=== PATIENT | female | born 1970 | race Caucasian/White ===

== ENCOUNTER 2017-09-25 09:46 | Emergency (ER) | payer OTHER ==
[~2017-09-25] VITALS: Ht 160 cm; Wt 70.0 kg
[2017-09-25 10:17] LABS: HEMOGLOBIN 12.7 G/DL (11.9-15.5); MCH 32.5 PG (29.0-34.0); MCHC 35.3 G/DL (30.0-36.0); MCV 92.1 FL (83-99); PLATELET COUNT 301 K/uL (156-360); RBC DIS.WIDTH-CV 12.9 % (11.8-14.6); RBC DIS.WIDTH-SD 42.9 % (39-53); RED BLOOD COUNT 3.91 M/uL (3.80-5.20)
[2017-09-25 10:33] LABS: CHLORIDE 104 mEq/L (99-109); POTASSIUM 3.8 mEq/L (3.7-5.4); SODIUM 137 mEq/L (136-147)
[2017-09-25 10:35] LABS: GLUCOSE 127 mg/dL (70-99)
[2017-09-25 10:39] LABS: CREATININE 0.8 mg/dL (0.6-1.3); GFR ESTIMATE (CALCULATED) > 59 mL/min/
[2017-09-25 10:40] LABS: UREA NITROGEN (BUN) 11 mg/dL (9-23)
[2017-09-25 11:47] LABS: APPEARANCE CLEAR ((CLEAR)); BILIRUBIN NEGATIVE; BLOOD NEGATIVE; COLOR YELLOW ((YELLOW)); GLUCOSE (STRIP) NEGATIVE; KETONES NEGATIVE; LEUKOCYTES NEGATIVE; NITRITE NEGATIVE; PROTEIN (STRIP) 30; SPECIFIC GRAVITY 1.021 (1.000-1.030); UROBILINOGEN 0.2 MG/DL (0.2-1.0)
[2017-09-25 12:04] LABS: QUANTITATIVE HCG < 4.0 MIU/ML
[2017-09-25] MEDS ORDERED: LEXAPRO5 MG PO (14:38)
[2017-09-25] MEDS ORDERED: ADDERALL XR 1010 MG PO (14:38)
[2017-09-25 18:20] VITALS: BP 93/55
[2017-09-25 18:27] VITALS: BP 93/55
[2017-09-25 21:01] VITALS: BP 105/56
[2017-09-26 00:16] VITALS: BP 95/55
[2017-09-26 04:08] VITALS: BP 103/49
[2017-09-26 07:49] VITALS: BP 107/58
[2017-09-26] MEDS ORDERED: IBUPROFEN800 MG PO (08:09)
== END 2017-09-26 09:20 | disposition home or self-care (01) ==
LOC: EME 09:46 → ENRESERV 14:45 → 2SOUTH 14:46 → ENRESERV 15:03 → 2EAST 18:14
PROVIDERS: Physician Assistant
PROC: 0UT04ZZ Resection of Right Ovary, Percutaneous Endoscopic Approach (ICD-10-PCS; principal; 2017-09-25)
DX: N83.511 Torsion of right ovary and ovarian pedicle (principal); N70.92 Oophoritis, unspecified; F32.9 Major depressive disorder, single episode, unspecified; F41.9 Anxiety disorder, unspecified; Z90.710 Acquired absence of both cervix and uterus; Z88.2 Allergy status to sulfonamides; Z88.8 Allergy status to other drugs, medicaments and biological substances
CPT/HCPCS: 74176; 76856; 80048; 81003; 84702; 85027; 88305; 99281; 99284; G0378; J0131; J0780; J1100; J1885; J2250; J2405; J2710; J2765; J3010; J7120; J7643; S0020